=== PATIENT | female | born 1990 | race Caucasian/White ===

== ENCOUNTER 2023-02-28 09:41 | Emergency (ER) | payer SELFPAY ==
[~2023-02-28] VITALS: Ht 162.6 cm; Wt 55.8 kg
[2023-02-28 09:50] VITALS: BP_SYST 153; PULSE 112; RESP 18; TEMP 98.3; O2SAT 98
[2023-02-28] MEDS ORDERED: LORazepam 2 MG/ML VIAL IVP ONE (10:15)
[2023-02-28] MEDS ORDERED: NACL 0.9% 1,000 ML IV ONE (10:15)
[2023-02-28] MEDS ORDERED: ACETAMINOPHEN 500 MG TABLET PO ONE (10:15)
[2023-02-28 10:30] LABS: BASOPHILS % (AUTO) 0.8 % (0.0-2.0); EOSINOPHILS # (AUTO) 0.1 K/uL (0.0-0.4); EOSINOPHILS % (AUTO) 1.9 % (0.0-4.0); HEMATOCRIT 44.3 % (36-48); HEMOGLOBIN 14.5 g/dL (12.0-16.0); LYMPHOCYTES # (AUTO) 1.1 K/uL (1.0-5.5); LYMPHOCYTES % (AUTO) 19.7 % (20.5-51.5); MEAN CORPUSCULAR HEMOGLOBIN 31 pg (27-31); MEAN CORPUSCULAR HGB CONC 33 % (32-36); MEAN CORPUSCULAR VOLUME 94 fL (79.0-98.0); MONOCYTES # (AUTO) 0.4 K/uL (0.0-1.0); MONOCYTES % (AUTO) 7.3 % (1.7-9.3); NEUTROPHILS # (AUTO) 4.1 K/uL (1.8-7.7); NEUTROPHILS % (AUTO) 70.3 % (40.0-70.0); PLATELET COUNT (AUTO) 259 K/uL (130-430); RED BLOOD CELL COUNT(AUTO) 4.69 MIL/uL (4.2-6.2); RED CELL DISTRIBUTION WIDTH 13.1 % (9.0-15.0); WHITE BLOOD COUNT (AUTO) 5.8 K/uL (4.8-10.8)
[2023-02-28 10:42] LABS: CALCIUM 9.4 mg/dL (8.4-11.0); CREATININE 0.88 mg/dL (0.55-1.30); POTASSIUM 3.4 mmol/L (3.5-5.1)
[2023-02-28] MEDS ORDERED: ALPR0.5T PO (11:16)
[2023-02-28] MEDS ORDERED: POTASSIUM CHLORIDE 20 MEQ/PKT PACKET PO ONE (11:30)
[2023-02-28 12:09] VITALS: BP_SYST 111; PULSE 85; RESP 18; TEMP 97.9; O2SAT 98
== END 2023-02-28 12:08 | disposition home or self-care (01) ==
LOC: SED 09:41
DX: R51.9 Headache, unspecified (principal); E11.9 Type 2 diabetes mellitus without complications; E87.6 Hypokalemia; R13.10 Dysphagia, unspecified; R20.2 Paresthesia of skin; Z79.899 Other long term (current) drug therapy
CPT/HCPCS: 99284; 96360; 70450; 80048; 85025; 36415; 76376; 81025; J2060; J7030